=== PATIENT | female | born 2005 | race Caucasian/White ===

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

== ENCOUNTER 2023-07-03 12:48 | Outpatient (CLI) | payer BC, SELFPAY ==
--- NOTE | 2023-07-03 12:53 | MR_ITS ---
WS: [email or web address] MRI THORACIC SPINE with and without contrast. HISTORY: NEUROFIBROMATOSIS TYPE 2 COMPARISON: 05/15/2022, 07/05/2021 TECHNIQUE: Multiplanar sequences are performed in sagittal and axial planes. MultiHance 10 mL IV. Normal thoracic alignment. Vertebral bodies and the disc spaces are well-maintained. No nodules or en hancement identified within the thoracic cord or the neural foramina. There are no enhancing schwanno mas or ependymomas identified. Paravertebral soft tissues are normal. IMPRESSION: 1. Negative MRI thoracic spine. No thoracic cord or neuroforaminal masses or nodular enhancement. 2. Similar to the prior study.
--- NOTE | 2023-07-03 12:53 | MR_ITS ---
WS: [email or web address] MRI LUMBAR SPINE WITH AND WITHOUT CONTRAST HISTORY: NEUROFIBROMATOSIS TYPE 2 COMPARISON: None available. TECHNIQUE: Sagittal and axial multisequence imaging is submitted. MultiHance 10 mL IV. Normal lumbar alignment with no compression fractures or marrow edema. Disc spaces and vertebral body heights are well-preserved. Conus terminates normally at L1-2 disc level. There are no enhancing nodules or masses within the conus or along the nerve roots extending to the l umbar region. No nerve root nodules or enhancement. L1-L2: Normal. L2-L3: Normal. L3-L4: Normal. L4-L5: Normal. L5-S1: Normal. IMPRESSION: Normal MRI lumbar spine. No nerve root nodules. No ependymomas or schwannomas identified.
--- NOTE | 2023-07-03 12:53 | MR_ITS ---
WS: [email or web address] MRI BRAIN WITH HIGH-RESOLUTION IMAGING THROUGH THE INTERNAL AUDITORY CANALS WITHOUT AND WITH CONTRAST HISTORY: NEUROFIBROMATOSIS TYPE 2 COMPARISON: 05/15/2022 and 07/05/2021 TECHNIQUE: Multiplanar, multisequence imaging is performed through the brain. Additional 3 mm imaging performed in multiple planes through the internal auditory canal. Postcontrast imaging with 10 ml's of MultiHance. Prior history of LEFT mastoidectomy. Postoperative changes are noted along the LEFT internal auditory canal. There is continued enhancement in a linear manner along the LEFT internal auditory canal whic h is very similar to the prior studies and probably postoperative scarring and gliosis. There is a ne w focal area of nodular enhancement along the proximal LEFT ICA which will need to be further evaluat ed for possible recurrence. New nodularity measures 2.9 mm. The additional nodule along the RIGHT ICA is reidentified measuring 4.5 x 3.0 mm. No diffusion abnormalities. Ventricles are normal size. No prior infarcts. Posterior fossa is normal otherwise. Mucoperiosteal thickening extends locally filling the RIGHT maxillary sinus. IMPRESSION: 1. Postoperative changes of LEFT mastoidectomy. Postsurgical changes are noted along the LEFT interna l auditory canal. There is linear enhancement. 2. There is a new area of nodular enhancement along the more proximal LEFT ICA measuring 2.9 mm. Ther e is additional very slight progression of enhancement toward the cerebellopontine angle. Early recur rence of schwannoma should be considered. Consider follow-up MRI internal auditory canals in 3 months with contrast. 3. Previously described mid RIGHT ICA schwannoma is stable.
--- NOTE | 2023-07-03 12:53 | MR_ITS ---
WS: [email or web address] MRI CERVICAL SPINE with and without contrast. HISTORY: NEUROFIBROMATOSIS TYPE 2 COMPARISON: 05/15/2022, 07/05/2021 Technique: Multiplanar, multisequence noncontrast imaging of the cervical spine. Postcontrast imaging , MultiHance 10 mL IV. Normal cervical alignment with no compression fracture or significant disc space narrowing. Signal within the cervical cord is normal. Visualized posterior fossa is unremarkable. Craniocervical junction, C1 and C2 relationship, odontoid process and soft tissues are normal. C2-C3: Normal. C3-C4: Normal. C4-C5: Normal. C5-C6: Reidentified is a focal area of enhancement in the far lateral RIGHT foramen of C5-6 measuring 5 x 6 mm. No significant change. No definite foraminal mass on the LEFT. C6-C7: Very minimal enhancement along the nerve roots greatest on the RIGHT. No discrete nodule Cal . There is just very mild enhancement. Similar to the prior study. If there is a nodule measures appr oximately 5 x 4 mm on the RIGHT. C7-T1: Normal. Paraspinal soft tissue are normal. IMPRESSION: 1. Normal cervical cord. No areas of enhancement. 2. No increase in size of the previously described schwannomas described at C5-6 and C6-7. The areas of enhancement along the nerve roots of C6-7 appear less nodular. No new area of enhancement or nodul arity. No progression since 07/05/2021.
[2023-07-03] MEDS: gadobenate dimeglumine 20 mL vial IV (14:53)
== END 2023-07-03 12:49 | disposition home or self-care (01) ==
LOC: RAD 12:49
PROVIDERS: PCP Electrodiagnostic Medicine; Visit Provider Electrodiagnostic Medicine
DX: Q85.02 Neurofibromatosis, type 2 (principal); Z98.890 Other specified postprocedural states
CPT/HCPCS: 70553; 72156; 72157; 72158; A9577

== ENCOUNTER 2024-03-12 12:54 | Emergency (ER) | payer OTHER, SELFPAY ==
[2024-03-12 13:20] VITALS: BP 126/78; PULSE 109; RESP 16; TEMP 37; O2SAT 100; BMI 21.3
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
[2024-03-12] MEDS: orphenadrine 30 mg/mL Inj 2 mL 60 MG IM (15:25)
[2024-03-12 15:45] VITALS: BP 124/79; PULSE 96; RESP 16; TEMP 37; O2SAT 100
== END 2024-03-12 15:34 | disposition home or self-care (01) ==
PROVIDERS: Emergency Provider Physician Assistant; PCP Electrodiagnostic Medicine
DX: S39.012A Strain of muscle, fascia and tendon of lower back, initial encounter (principal); V89.2XXA Person injured in unspecified motor-vehicle accident, traffic, initial encounter
CPT/HCPCS: 72040; 72072; 72100; 96372; 99284; J2360

== ENCOUNTER → 2024-08-05 11:28 | Outpatient (BNVA) | payer BC, SELFPAY | PROVIDERS: PCP Electrodiagnostic Medicine; Visit Provider Nurse Practitioner Women's Health | DX: Z01.419 Encounter for gynecological examination (general) (routine) without abnormal findings | CPT/HCPCS: 80053; 82306; 83036; 83520; 84443; 85025; 87624 ==

== ENCOUNTER 2024-10-12 22:38 | Emergency (ER) | payer BC, SELFPAY ==
[2024-10-12 22:40] VITALS: BP 124/80; PULSE 102; RESP 18; TEMP 37.3; O2SAT 98; BMI 23.6
[2024-10-12] MEDS: sodium chloride 0.9% 1,000 ML 999 ML IV (23:49)
[2024-10-12] MEDS: ketorolac 60 mg/2 mL INJ 30 MG IVP (23:50)
[2024-10-12] MEDS: metoclopramide 5 mg/mL SDV 2 mL 10 MG IVP (23:51)
[2024-10-12] MEDS: diphenhydrAMINE 50 mg/mL SDV 1mL IVP (23:51)
[2024-10-12] MEDS: dexamethasone 10 mg/mL INJ IVP (23:51)
--- NOTE | 2024-10-13 | W.ED.HA ---
HPI - Headache General: Chief Complaint: Headache Stated Complaint: Head Ache Time Seen by Provider: 10/12/24 22:50 Source: patient Mode of arrival: ambulatory Limitations: no limitations History of Present Illness: Patient is a 19-year-old female who presents the emergency department complaining of a migraine headache since this afternoon. States that normally she takes a tramadol and this aborts the headache, but this did not work earlier. Specifically worsened by light and sound, states this feels identical to prior headaches just that her tramadol did not work for her this time around. No neurological symptoms, no vomiting, no other concerns. Vitals within normal limits. States that she has had a migraine cocktail before and this has worked for her. MD elicited complaint: migraine Onset (ago): hour(s) Onset description: gradually Location: diffuse Severity: severe Exacerbating factors: light and noise Associated symptoms: Deny chest pain, fever(s), lightheadedness, nausea, rash or vomiting Related Data Home Medications ?Medication ?Instructions ?Recorded ?Confirmed acetaminophen 500 mg tablet 1,000 mg PO Q6H PRN Pain 09/17/21 08/05/24 (Tylenol Extra Strength) albuterol sulfate 90 mcg/actuation 2 puff inhalation QID PRN 05/10/22 08/05/24 aerosol inhaler (Ventolin HFA) Shortness Of Breath celecoxib 200 mg capsule (Celebrex) 200 mg PO BID 08/05/24 08/05/24 Previous Rx's ?Medication ?Instructions ?Recorded cyclobenzaprine 10 mg tablet 10 mg PO TID #14 tabs 03/12/24 Allergies Allergy/AdvReac Type Severity Reaction Status Date / Time hydrocodone (From [place]) Allergy ADR-Itching Verified 03/12/24 13:29 Review of Systems General: Reports: 10 or more systems reviewed and unremarkable except in HPI and below Const: Denies: fever(s), chills or fatigue Eyes: Denies: change in vision ENMT: Denies: throat pain, ear or mastoid pain or nasal discharge Card: Denies: chest pain, palpitations, swelling of feet/ankles or lightheadedness Resp: Denies: dyspnea, productive cough or wheezing GI: Denies: abdominal pain, nausea, vomiting, diarrhea or constipation : Denies: flank pain, difficulty voiding, dysuria or urinary frequency Musc: Denies: neck pain, back pain or joint pain Skin/Breast: Denies: rash Neuro: Reports: headache(s); Denies: numbness in extremities or weakness in extremities PFSH ED PFSH: Medical History Chronic pain Neurofibromatosis II Family History Mother Hypercholesteremia Thyroid disease Graves disease Breast cancer Grandmother Hypercholesteremia Denies family history of Colon cancer Ovarian cancer Diabetes Heart disease Hypertension Uterine cancer Stroke Social History Smoking and tobacco/nicotine status: never used tobacco/nicotine Substance/Drug Use: never Female Reproductive History: Date of last menstrual period: 10/02/24 Physical Exam Const: COMMON NORMALS: no acute distress, patient oriented x3 and no limitations GENERAL APPEARANCE: cooperative, comfortable and well developed ORIENTATION/CONSCIOUSNESS: Yes awake, Yes oriented to person, Yes oriented to place and Yes oriented to time HENMT: COMMON NORMALS: normocephalic, atraumatic and hearing grossly normal bilaterally HEAD & SCALP: normocephalic and atraumatic Eye: COMMON NORMALS: Equal, round and reactive pupils present, EOMs intact bilaterally and conjunctivae normal CONJUNCTIVA: Yes conjunctivae normal PUPIL: Yes Equal, round and reactive pupils present Neck/C-Spine: COMMON NORMALS: full ROM, supple and no JVD Resp: COMMON NORMALS: normal respiratory effort, No retractions, No use of accessory muscles and clear to auscultation bilaterally AUSCULTATION: clear to auscultation bilaterally Cardio: COMMON NORMALS: no JVD, regular rate, regular rhythm, No clicks present (Cardio), No murmurs present (Cardio) and No rub (Cardio) RATE: regular rate RHYTHM: regular rhythm Extremity: COMMON NORMALS: normal to inspection, full ROM and capillary refill normal Neuro: COMMON NORMALS: patient oriented x3, CN's II-XII intact bilaterally, moves all extremities, no focal motor deficits and no sensory deficits noted SENSORIUM/ORIENTATION: Yes oriented to person, Yes oriented to place and Yes oriented to time Psych: COMMON NORMALS: mental status grossly normal and Normal thought process present THOUGHT PROCESS: Normal thought process present Skin: COMMON NORMALS: no rashes or lesions noted GENERAL SKIN EXAM: no rashes or lesions noted Course Vital Signs: Vital signs: Vital Signs Temperature 99.1 F 10/12/24 22:40 Pulse Rate 102 H 10/12/24 22:40 Respiratory Rate 18 10/12/24 22:40 Blood Pressure 124/80 10/12/24 22:40 Pulse Oximetry 98 10/12/24 22:40 MDM - Headache Medical Decision Making States she is having classical migraine headache, just did not respond to tramadol. Given migraine cocktail this did improve her symptoms she will be discharged home encouraged to rest in dark quiet environment and follow-up routinely with regular doctor. Discharged in stable condition. No radiology studies performed this visit Discharge Plan Discharge Patient Disposition: Home Clinical Impression: Migraine Condition: Stable Prescriptions: No Action acetaminophen [Tylenol Extra Strength] 500 mg tablet 1,000 mg PO Q6H PRN (Reason: Pain) celecoxib [Celebrex] 200 mg capsule 200 mg PO BID cyclobenzaprine 10 mg tablet 10 mg PO TID Qty: 14 0RF Ventolin HFA 90 mcg/actuation Hfa Aerosol Inhaler 2 puff INHALATION QID PRN (Reason: Shortness Of Breath) Discharge Orders: Discharge ED (Routine); Ordered 10/12/24 Ordered By: Brannon Salazar Referrals: Ez Lozano DO [Primary Care Provider] - Patient Instructions: Migraine Headache (ED) Activity Restrictions/Additional Instructions: Rest in dark, quiet environment. Drink plenty of fluids. Continue your home medications. Follow-up with regular doctor as needed. Print Language: Syriac Coding Level of Care Code ED Rn Peritoneal Dialysis for Reta Clayton
[2024-10-13 00:29] VITALS: BP 128/82; PULSE 96; O2SAT 98
== END 2024-10-13 00:31 | disposition home or self-care (01) ==
PROVIDERS: Emergency Provider Physician Assistant; PCP Electrodiagnostic Medicine
DX: G43.909 Migraine, unspecified, not intractable, without status migrainosus (principal)
CPT/HCPCS: 96361; 96374; 96375; 99284; J1100; J1200; J1885; J2765; J7030